=== PATIENT | male | born 1980 | race Caucasian/White ===

== ENCOUNTER 2019-04-14 00:50 | Emergency (ER) | payer BC, OTHER ==
[~2019-04-14] VITALS: Ht 170.2 cm; Wt 99.3 kg
[~2019-04-14 00:50] MED LIST: ACET500C5 PO; HYDR-4011 PO; IBUP-1542 PO; MOME17SP14 NASAL; ONDA4TAB8 PO; POLY10DR19 BOTH EYES
[2019-04-14 00:55] VITALS: Ht 170.2 cm; Wt 99.3 kg
[2019-04-14] MEDS ORDERED: KETOROLAC 30 MG INJ IV STA (02:13)
[2019-04-14] MEDS ORDERED: morphine 4 MG/ML VIAL IV STA ×2 (02:13→05:51)
[2019-04-14] MEDS ORDERED: ONDANSETRON 4 MG INJ IV STA ×3 (02:13→03:54)
[2019-04-14] MEDS ORDERED: SOD CHLORIDE 0.9% 1,000 ML IV STA (02:13)
[2019-04-14] MEDS ORDERED: KETAMINE HCL (50 MG/ML) 1ml syringe IV STA ×2 (02:37→03:54)
[2019-04-14 06:03] VITALS: BP 114/68; PULSE 74; RESP 18
== END 2019-04-14 06:15 | disposition home or self-care (01) ==
LOC: E/R 00:50
DX: R10.9 Unspecified abdominal pain (principal)
CPT/HCPCS: 74176; 80053; 81003; 85025; 96361; 96374; 96375; 96376; 99285; J1885; J2270; J2405; J7030; J7999